=== PATIENT | male | born 1965 | race Caucasian/White ===

== ENCOUNTER 2025-07-29 13:18 | Emergency (ER) | payer MEDICARE, MEDICAID, SELFPAY ==
[2025-07-29 13:19] VITALS: BP 154/109; PULSE 109; RESP 20; TEMP 36.9; O2SAT 95; BMI 34.2
--- NOTE | 2025-07-29 14:04 | CT_ITS ---
PROCEDURE: CTA CHST, ABD, PEL W AND/OR WO 07/29/2025 REASON FOR EXAM: IVC FILTER CLOGGED, BACK PAIN? EVALUATE AORTA/IVC TECHNIQUE: Procedure Code: CTCTA.CHAP.2 Modality: CT Procedure: CTA CHST, ABD, PEL W AND/OR WO Coronal and Sagittal reconstruction series were provided. Maximum intensity projection (MIP) reconstruction of the aorta were obtained. One or more dose reduction techniques were used (e.g., Automated exposure control, adjustment of the mA and/or kV according to patient size, use of iterative reconstruction technique. CONTRAST: Isovue 370 VOLUME: 93 mL RADIATION DOSE SUMMARY: DLP: 1376.82 mGycm COMPARISON: None available. FINDINGS: VASCULATURE: There is no thoracic or abdominal aortic aneurysm. No aortic dissection. Atherosclerotic calcification of the aorta. 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 The celiac trunk and superior mesenteric artery are patent. The bilateral common iliac arteries and branching vessels are patent. There is an infrarenal IVC filter. There is narrowing and no contrast filling of the inferior vena cava below this level. Prominent azygous vein. Extensive abdominal varices and collaterals. On the left, there is mild fat stranding of the left abdominal varices (series 2, image 227). CHEST: Pulmonary parenchyma: No focal lung consolidation. Airways: The central airways are patent. Pleural space: No pneumothorax or pleural effusion. Heart and pericardium: The heart is normal in size. No pericardial effusion. Assessment of coronary artery calcifications limited on this examination. Mediastinum and tracey: Unremarkable. Osseous structures: No aggressive osseous lesion. ABDOMEN AND PELVIS: Liver: Normal size. No enhancing lesion. Gallbladder and biliary ducts: Unremarkable gallbladder. Normal caliber intrahepatic and common bile ducts. Pancreas:Unremarkable. No ductal dilatation or mass. No peripancreatic fluid. Spleen: Unremarkable. 1.3 x 1.3 cm splenule inferior to spleen. Adrenal glands: Unremarkable. Kidneys and ureters: Normal renal size and enhancement. No nephroureterolithiasis or hydroureteronephrosis. Left renal cyst measures 1.6 x 1.9 cm. Urinary bladder: Unremarkable. GI: Unremarkable stomach and duodenum. Normal caliber small bowel and large bowel.No evidence of bowel obstruction. Appendix: Not definitively visualized. Peritoneum: No ascites. Bilateral fat containing inguinal hernias. Lymph nodes: No lymphadenopathy. Reproductive organs: Punctate prostatic calcification Musculoskeletal and soft tissues: No aggressive osseous lesions. Degenerative changes of the visualized spine.Unremarkable soft tissues. CT/CTA Chst, Abd, Pel W and/or WO IMPRESSION: 1. No evidence of aortic dissection or aneurysm. 2. Infrarenal IVC filter. Luminal narrowing and no contrast filling of the inf erior vena cava below the level of the IVC filter is suggestive of underlying venous occlusion/thrombus, likely chronic in the se tting of collateral vessels. Please note that evaluation of venous structures is limited on a CTA examination. 3. Abdominal wall varices where there are inflammatory changes at the site of l ower left abdomen. Underlying thrombosis not excluded. Reading Location: [id number]
--- NOTE | 2025-07-29 14:04 | VDLE_ITS ---
Reason For Study Reason For Study: BLE SWelling RIGHT LEFT GSV is normal. Lt GSV is DILATED and NONCOMPRESSIBLE Rt ASV is PARTIALLY COMPRESSIBLE, consistent with Lt Superficial Branch of SFJ is DILATED and CHRONIC SVT. NONCOMPRESSIBLE from lower abdomen to the SFJ. Lt SSV is DILATED and NONCOMPRESSIBLE. All three findings Rt CFV - FV - POP V - T/P Trunk all appear PARTIALLY are consistent with ACUTE SVT. COMPRESSIBLE with webbed intraluminal echoes. Finding is consistent with CHRONIC DVT. FV and POP V appear CFV - FV appear PARTIALLY COMPRESSIBLE with mixed to be INCOMPETENT with a reflux time of greater than intraluminal echoes consistent with ACUTE on CHRONIC 1 second. DVT. FV appears to be INCOMPETENT with a reflux time of greater than 1 second. Gastrocnemius Vein is DILATED and NONCOMPRESSIBLE. Finding consistent with ACUTE DVT. . Acute deep vein thrombosis is noted in the POP V. It PTV is compressible is dilated and NONCOMPRESSIBLE. Peroneal Vein is compressible. Acute deep vein thrombosis is noted in the Procedure Gastrocnemius V. It is dilated and NONCOMPRESSIBLE. This is a venous duplex using B-mode, color flow and Acute deep vein thrombosis is noted in the T/P Trunk. spectral Doppler. It is dilated and NONCOMPRESSIBLE. Exam performed portable in ED. Acute deep vein thrombosis is noted in the PTV. It is The exam was diagnostic. dilated and NONCOMPRESSIBLE. A preliminary report was called and/or faxed to Dr. SHEPHERD PerV is compressible. Sally. VL/Venous Duplex US - Armando Extrem Interpretation Summary Acute deep vein thrombosis noted in the left popliteal vein, gastrocnemius vein , tibioperoneal trunk vein, posterior tibial vein. Acute deep vein thrombosis noted in the right gastrocnemius vein. Acute on chronic post thrombotic changes noted in the left common femoral vein, femoral vein. Chronic post thrombotic changes noted in the right common femoral vein, femoral vein, popliteal vein, tibioperoneal trunk vein. Acute superficial vein thrombosis noted in the left great saphenous vein, small saphenous vein, and lower abdominal branches. Ordering Physician: Leigh Zavala Referring Physician: N/A Performed By: Larry Lee RVT
--- NOTE | 2025-07-29 14:06 | EKG12_ITS ---
Test Reason : Blood Pressure : */* mmHG Vent. Rate : 93 BPM Atrial Rate : 93 BPM P-R Int : 182 ms QRS Dur : 90 ms QT Int : 364 ms P-R-T Axes : 67 63 66 degrees QTcB Int : 452 ms Normal sinus rhythm Normal ECG Confirmed by Margarito Lynch (Sly), supervising editor trailer DON MENARD ([id number]) on 08/01/2025 11:23:13 AM Also confirmed by Margarito Lynch ([id number]), supervising editor trailer DON MENARD ([id number]) on 08/02/2025 10:46:51 AM Referred By: Confirmed By: Margarito Lynch
[2025-07-29 14:20] LABS: Hematocrit 47.5 % (40-54); Hemoglobin 16.5 g/dL (13.0-16.5); Immature Granulocytes Count 0.020 X10^3/uL (0.0-0.0); Mean Corp Hgb Conc 34.7 g/dL (32-36); Mean Corpuscular Volume 104.6 fL (80-94); Mean Platelet Vol. 9.4 fl (6.2-12.0); NRBC Flagged by Analyzer 0 % (0-5); Platelet Count 140 K/mm3 (150-450); RBC Distribution Width CV 14.6 % (11.6-14.6); RBC Distribution Width SD 57.1 fl (35.1-43.9); Red Blood Count 4.54 M/mm3 (4.6-6.2); White Blood Count 7.4 K/mm3 (4.4-11.0)
[2025-07-29 15:01] LABS: Anion Gap 15 (5-15); BUN 15 mg/dL (4-19); BUN/Creat Ratio 12.2 RATIO (10-20); Calcium,Total 9.3 mg/dL (7.6-11.0); Carbon Dioxide 22.3 mmol/L (21.0-32.0); Chloride 101 mmol/L (98-108); Estimated Creatinine Clearance 90.02 ml/min (50-250); Glucose 101 mg/dL (70-99); Potassium 4.3 mmol/L (3.3-5.1); Troponin T High Sensitivity 20 ng/L (<=22)
--- NOTE | 2025-07-29 15:21 | EDS_ITS ---
HPI <Dr. Leigh Zavala MD - Last Filed: 07/30/25 08:28> History of Present Illness Chief Complaint: Other, Pain/Inj Narrative Narrative: Patient is a 59-year-old male presenting to the emergency department for left leg swelling and pain as well as abdominal wall pain. Patient states that he receives most of his care in [place] and had history of clotting with IVC placement. He states since then he has had issues with the IVC filter and multiple times they tried to remove it but could not. He is supposed to be on Eliquis but has been out for the past month and has not been taking it. He states that he has had some swelling and pain of his left abdominal wall on and off over the past few months. This morning develops left inner leg pain and swelling. He endorses shortness of breath that is around his baseline. Endorses pain beneath bilateral shoulder blades. Denies chest pain. Denies fevers or chills. PFSH <Dr. Leigh Zavala MD - Last Filed: 07/30/25 08:28> [facility] Medical History Pulmonary embolism Pulmonary embolism Home Medications ?Medication ?Instructions ?Recorded ?Last Taken ?Type apixaban 5 mg (74 tabs) tablets in See Rx Instructions .Route 07/29/25 Unknown Rx a dose pack (Eliquis DVT-PE Treat .COMPLEX #74 tabs 30D Start) Allergy/AdvReac Type Severity Reaction Status Date / Time No Known Allergies Allergy Verified 07/29/25 13:24 Social History Smoking Status: Never smoker ROS <Dr. Leigh Zavala MD - Last Filed: 07/30/25 08:28> ROS ED ROS Narrative see HPI EXAM <Dr. Leigh Zavala MD - Last Filed: 07/30/25 08:28> Physical Exam Narrative Exam Narrative: Vital signs: Reviewed General: Alert and orientedx3. No acute distress. well appearing, nontoxic. HEENT: Head is normocephalic and atraumatic, sinuses nontender, pupils equal round and reactive. Nares are patent. Oropharynx and throat exams normal. Neck: Supple without lymphadenopathy nontender Cardiovascular: Regular rate and rhythm, no murmurs. No rubs or gallops. Normal S1 and S2. Radial pulses intact and symmetric bilaterally. Respiratory: Clear to auscultation bilaterally. No wheezes, rales, rhonchi Abdominal: On the left sided abdominal wall there is erythematous palpable veins that are tender to palpation. There is no petechiae. The abdomen is otherwise nontender to palpation. Soft. Normal bowel sounds. No guarding or rebound. Nonsurgical abdomen Extremities: DP and PT pulses are intact bilaterally. There is chronic venous stasis changes in bilateral lower extremities. Sensation and motor intact in bilateral lower extremities. There is bilateral symmetric swelling to bilateral lower legs. There is a large erythematous and tender area to the left medial thigh. There is no fluctuance or induration. No drainage. Not consistent with an abscess. There are palpable veins in this area. The erythema does not extend up into the inguinal area. Compartments are soft to palpation. Neurological: Cranial nerves II through XII are grossly intact. Normal strength and sensation. Normal cerebellar function The rest of the physical exam is unremarkable Const Vital Signs: 07/29/25 13:19 07/29/25 15:22 07/29/25 17:00 Temperature 98.4 F Temperature Source Oral Pulse Rate 109 H 95 101 H Respiratory Rate 20 H 18 22 H Blood Pressure 154/109 H 145/100 H 173/99 H Blood Pressure Mean 124 115 123 Pulse Ox 95 98 Oxygen Delivery Method Room Air Room Air Room Air 07/29/25 18:35 07/29/25 18:57 Temperature 97.9 F 97.9 F Temperature Source Pulse Rate 110 H 110 H Respiratory Rate 20 H 20 H Blood Pressure 182/94 H 182/94 H Blood Pressure Mean 123 123 Pulse Ox 98 98 Oxygen Delivery Method <Dr. Isaiah Escalante MD - Last Filed: 07/29/25 18:24> Physical Exam Const Vital Signs: 07/29/25 13:19 07/29/25 15:22 07/29/25 17:00 Temperature 98.4 F Temperature Source Oral Pulse Rate 109 H 95 101 H Respiratory Rate 20 H 18 22 H Blood Pressure 154/109 H 145/100 H 173/99 H Blood Pressure Mean 124 115 123 Pulse Ox 95 98 Oxygen Delivery Method Room Air Room Air Room Air 07/29/25 18:35 07/29/25 18:57 Temperature 97.9 F 97.9 F Temperature Source Pulse Rate 110 H 110 H Respiratory Rate 20 H 20 H Blood Pressure 182/94 H 182/94 H Blood Pressure Mean 123 123 Pulse Ox 98 98 Oxygen Delivery Method MDM <Dr. Leigh Zavala MD - Last Filed: 07/30/25 08:28> [facility] Narrative Medical decision making narrative: Patient is a 59-year-old male presenting to the emergency department for leg swelling. Patient was seen and examined. Vitals are stable. Patient is tachycardic at 109 with a BP of 154/109. Respirations of 20, patient saturating 95% on room air. He is afebrile. Differential includes but is not limited to: DVT, superficial thrombophlebitis, cellulitis EKG shows normal sinus rhythm at a rate of 93 with no ischemic changes. No dysrhythmia. CBC with no leukocytosis and a normal hemoglobin. BMP with very mildly elevated creatinine 1.22 otherwise no significant abnormalities. Lactate within normal limits. Troponin within normal limits. mechatronics technologist notified me that there were acute on chronic DVTs in bilateral lower extremities with clotting in the gastric veins that he saw on ultrasound. Patient is hemodynamically stable and I am waiting on this radiology CTA read which I do not see any acute dissection on to start the patient on anticoagulation. Patient signed out to Dr. Escalante pending CT read and disposition. History & Record Review Discussion w/independent historian: Patient Lab Data Attestation: I reviewed the patient's lab results. Labs: Laboratory Results - last 24 hr 07/29/25 07/29/25 07/29/25 14:10 16:10 16:44 WBC 7.4 RBC 4.54 L Hgb 16.5 Hct 47.5 MCV 104.6 H MCH 36.3 H MCHC 34.7 RDW Std Deviation 57.1 H RDW Coeff of Chad 14.6 Plt Count 140 L MPV 9.4 Immature Gran % (Auto) 0.300 Neut % (Auto) 64.1 Lymph % (Auto) 23.7 Gila % (Auto) 9.8 Eos % (Auto) 1.6 Baso % (Auto) 0.5 Absolute Neuts (auto) 4.8 Absolute Lymphs (auto) 1.76 Nucleated RBC % 0 Sodium 139 Potassium 4.3 Chloride 101 Carbon Dioxide 22.3 Anion Gap 15 BUN 15 Creatinine 1.22 H Estim Creat Clear Calc 90.02 Est GFR (MDRD) Non-Af 68 BUN/Creatinine Ratio 12.2 Glucose 101 H Lactic Acid 1.6 Calcium 9.3 Troponin T High Sens 20 Troponin T Hi Sens 2 Hr Cancelled 18 Radiography Diagnostic Testing: Clinical Impression(s) from Imaging Studies Chest/Abdomen/Pelvis CTA 07/29/25 14:04 IMPRESSION: 1. No evidence of aortic dissection or aneurysm. 2. Infrarenal IVC filter. Luminal narrowing and no contrast filling of the inferior vena cava below the level of the IVC filter is suggestive of underlying venous occlusion/thrombus, likely chronic in the setting of collateral vessels. Please note that evaluation of venous structures is limited on a CTA examination. 3. Abdominal wall varices where there are inflammatory changes at the site of lower left abdomen. Underlying thrombosis not excluded. Reading Location: [id number] <Dr. Isaiah Escalante MD - Last Filed: 07/29/25 18:24> [facility] Lab Data Labs: Laboratory Results - last 24 hr 07/29/25 07/29/25 07/29/25 14:10 16:10 16:44 WBC 7.4 RBC 4.54 L Hgb 16.5 Hct 47.5 MCV 104.6 H MCH 36.3 H MCHC 34.7 RDW Std Deviation 57.1 H RDW Coeff of Chad 14.6 Plt Count 140 L MPV 9.4 Immature Gran % (Auto) 0.300 Neut % (Auto) 64.1 Lymph % (Auto) 23.7 Gila % (Auto) 9.8 Eos % (Auto) 1.6 Baso % (Auto) 0.5 Absolute Neuts (auto) 4.8 Absolute Lymphs (auto) 1.76 Nucleated RBC % 0 Sodium 139 Potassium 4.3 Chloride 101 Carbon Dioxide 22.3 Anion Gap 15 BUN 15 Creatinine 1.22 H Estim Creat Clear Calc 90.02 Est GFR (MDRD) Non-Af 68 BUN/Creatinine Ratio 12.2 Glucose 101 H Lactic Acid 1.6 Calcium 9.3 Troponin T High Sens 20 Troponin T Hi Sens 2 Hr Cancelled 18 Radiography Diagnostic Testing: Clinical Impression(s) from Imaging Studies Chest/Abdomen/Pelvis CTA 07/29/25 14:04 IMPRESSION: 1. No evidence of aortic dissection or aneurysm. 2. Infrarenal IVC filter. Luminal narrowing and no contrast filling of the inferior vena cava below the level of the IVC filter is suggestive of underlying venous occlusion/thrombus, likely chronic in the setting of collateral vessels. Please note that evaluation of venous structures is limited on a CTA examination. 3. Abdominal wall varices where there are inflammatory changes at the site of lower left abdomen. Underlying thrombosis not excluded. Reading Location: [facility] Management Discussion w/another healthcare provider: machine operator farmworker/Case management (Case management gave him multiple [place] resources. Apparently he does have resources to pay for the medication. He will receive his first dose of Eliquis in department and prescription with several refills.) Treatment and Re-Evaluation :: CT of the chest, abdomen pelvis reviewed. 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 There is collateral circulation noted by radiologist. There is also superficial thrombi-itis noted. Will contact case management regarding assistance with medications since patient was not able to fill his Eliquis prescription due to cost same problem will rise if he is placed on Coumadin since he will need to give himself Lovenox injections for 5 days. Discharge Plan Triage Chief Complaint: Other, Pain/Inj ED Provider: Leigh Zavala Dx/Rx/DC Orders Clinical Impression: Deep venous thrombosis of both lower extremities, Superficial vein thrombosis, Noncompliance with medication regimen, Elevated serum creatinine, Elevated blood pressure reading Instructions: ED Deep Vein Thrombosis (DVT), ED Thrombophlebitis, Superficial Prescriptions: New Eliquis DVT-PE Treat 30D Start 5 mg (74 tabs) tablets,dose pack See Rx Instructions .Route .COMPLEX Qty: 74 2RF Rx Instructions: orally per package directions Primary Care Provider: Care Physician,No Primary Referrals: Santi Rahman MD [Med Staff - Active Staff, Vascular Surgery] - 5-7 Days Care Physician,No Primary [Primary Care Provider, Medical] Activity Restrictions/Additional Instructions: you need to contact your doctor and see your doctor in 1 to [address] are [address] Dr[address] Rahman's name to discuss clot burden below your IVC filter Your blood pressure is elevated. You need to have this rechecked in remains elevated will need prescription for blood pressure medication Print Language: Amharic Disposition Disposition: Home, Self Care Discharge Date/Time: 07/29/25 18:57
[2025-07-29 15:22] VITALS: BP 145/100; PULSE 95; RESP 18; O2SAT 98
--- NOTE | 2025-07-29 16:38 | PCA ---
THIS US TOOK PHONE CALL FROM JACKELYN ZAMBRANO , SHE IS HIS ADVOCATE AND LIVES IN [place]. SHE WAS NOT IN THE PATIENTS CHART, HOWEVER I DID GO INTO THE ROOM AND ASK THE PATIENT 3 SEPARATE TIMES HE WAS HESITANT AND TOLD ME YOU BETTER JUST TELL HER INFO AND ADD HER TO THE LIST, SHE WILL NOT STOP IF YOU DON'T I REASSURED THE PATIENT HE HAS THE RIGHT TO SAY NO. HE THEN GAVE ME THE OKAY TO GIVE INFORMATION. JACKELYN THEN STATED THE PATIENT DRINKS ALCOHOL FROM THE MOMENT HE WAKES UP UNTIL HER GOES TO BED. HE HAS NOT BEEN TAKING BLOOD THINNERS BECAUSE HE BELIEVES THAT ALCOHOL IS ENOUGH OF A BLOOD THINNER IF HE DRINKS IT MUCH HE DOES. SHE STATED SHE WANTED TO TALK TO THE NEUROLOGIST BECAUSE ONLY HE WOULD UNDERSTAND SHE CONTINUES TO STATE IF YOU DO NOT GIVE HIM EITHER OJ AND VODKA OR 2 BEERS THE SECOND THAT YOU TAKE HIM OFF THE FLUIDS HE WILL GO INTO CARDIAC ARREST AND IN YOUR FACILITY WITHIN 2 HOURS. SHE ALSO STATE I HAVE SAVED 2 LIVES BY TELLING THE NEUROLOGIST THIS INFORMATION I WROTE THIS DOWN AND COMMUNICATED WITH THE NURSE IN CHARGE AND THE NURSE FOR THE PATIENT.
[2025-07-29 17:00] VITALS: BP 173/99; PULSE 101; RESP 22
[2025-07-29 17:11] LABS: Troponin T High Sens 2 HR 18 ng/L (<=22)
--- NOTE | 2025-07-29 17:24 | CM.ED ---
Social Work: Date of referral: 07/29/25 Reason for referral: Limited Support Referred by: ED Doctor Patient provided consent to social work visit. Patient alone. Patient stated he lived in [place] since 2009 with friends, his friends ended up getting so patient moved in with his friend's cousin and her father 4 1/2 years ago and in April, patient had a surgery in [place], woke up and his brother was with him and asked patient to stay with him for a while which patient did for a short time, then moved to [place] just before and has been staying with his ex's twin sister where he will be up until the of this month, at which point patient has to be out. Patient stated he can't go back to [place] because the female friend patient was living with and her father moved to [place]. 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 Patient has his social security card and gets Social Security. Patient stated he's connected to a home care aide, Mary who is helping patient secure housing and/or a nursing home by the . Patient unsure where is classification case manager is through but believes it to be about 2 hours away from [place]. Trash Collector Supervisor completed the Social Determinants of Health with patient and provided extensive resources for food, clothing, nursing home, transportation, PCP, Dental, Case Management, financial assistance, and medical assistance, all of which patient accepted and expressed appreciation for. Patient denied any other needs/concerns at this time. Annika Mcgee, COMMERCIAL REAL ESTATE MANAGER, MANAGER ACTION
--- NOTE | 2025-07-29 18:11 | CM.ED ---
Social Work Coal Tram Driver asked by ED doctor to follow up again in regards to patient being able to obtain needed medication which older adult social work specialist did. Patient stated he has only been out of his Eliquis for 2 weeks, not a month. Patient confirmed that his insurance and prescription drug benefits are all still active and patient confirmed current coverage. Patient stated the only reason he hasn't taken it is because he has to keep leaving message with his doctor's office. Patient stated the last time he needed his refill, the pharmacy had to call and request a refill from his doctor, at which point the medication was called in. Coal Tram Driver provided education about the importance/urgency of follow through immediately which patient verbalized he understood and would. Coal Tram Driver also provided education about the importance of getting his insurance switched to [place] to ensure there is no lapse in coverage which patient verbalized he understood. Coal Tram Driver educated patient about the importance of getting established locally with medical providers as eventually the prescribing doctor may stop ordering refills if patient is no longer being seen by that doctor which patient verbalized he understood. Lastly, older adult social work specialist inquired about patient's alcohol consumption which was shared with older adult social work specialist which patient denied. Coal Tram Driver educated patient about the RAMP program at [facility] if ever needed which patient stated he would not need. Annika Mcgee, RING SPINNER, HIDE AND SKIN CLASSER
[2025-07-29 18:35] VITALS: BP 182/94; PULSE 110; RESP 20; TEMP 36.6; O2SAT 98
[2025-07-29] MEDS: APIXABAN 5 MG TABLET 10 MG PO (18:38)
[2025-07-29 18:57] VITALS: BP 182/94; PULSE 110; RESP 20; TEMP 36.6; O2SAT 98
== END 2025-07-29 18:57 | disposition home or self-care (01) ==
PROVIDERS: Emergency Provider Student in an Organized Health Care Education/Training Program; Visit Provider Student in an Organized Health Care Education/Training Program
DX: M79.605 Pain in left leg (principal); I82.432 Acute embolism and thrombosis of left popliteal vein; I82.452 Acute embolism and thrombosis of left peroneal vein; I82.463 Acute embolism and thrombosis of calf muscular vein, bilateral; Z91.148 Patient's other noncompliance with medication regimen for other reason; R06.02 Shortness of breath; Z79.01 Long term (current) use of anticoagulants; R79.89 Other specified abnormal findings of blood chemistry; R03.0 Elevated blood-pressure reading, without diagnosis of hypertension; Z86.711 Personal history of pulmonary embolism; I82.812 Embolism and thrombosis of superficial veins of left lower extremity
CPT/HCPCS: 71275; 74174; 80048; 83605; 84484; 85025; 93005; 93970; 99284; Q9967; A4216